=== PATIENT | female | born 1970 | race Caucasian/White ===

== ENCOUNTER → 2020-04-06 | Outpatient (CLI) | payer BC, OTHER ==
[~2020-04-06] MED LIST: CLEOCIN HCL300 MG PO; IBUPROFEN600 MG PO
[2020-04-06 08:14] LABS: HEMOGLOBIN 13.2 gm/dl (12.3-15.3)
== END ==
LOC: LAB 07:32
PROVIDERS: Internal Medicine Hematology & Oncology
DX: C50.812 Malignant neoplasm of overlapping sites of left female breast (principal); M25.50 Pain in unspecified joint; N95.1 Menopausal and female climacteric states; Z79.811 Long term (current) use of aromatase inhibitors
CPT/HCPCS: 36415; 85025; 93005

== ENCOUNTER 2020-09-30 18:33 | Emergency (ER) | payer BC, OTHER ==
[~2020-09-30] VITALS: Ht 167.6 cm; Wt 74.8 kg
[2020-09-30 20:24] LABS: HEMOGLOBIN 11.3 gm/dl (12.3-15.3); RED BLOOD COUNT 3.07 M/UL (4.00-5.10); WHITE BLOOD COUNT 5.9 K/UL (4.5-11.0)
[2020-09-30] MEDS ORDERED: CLEOCIN HCL300 MG PO (22:58)
[2020-09-30] MEDS ORDERED: IBUPROFEN600 MG PO (22:58)
== END 2020-09-30 23:06 | disposition home or self-care (01) ==
LOC: ER1 18:33
PROVIDERS: Internal Medicine
DX: N76.2 Acute vulvitis (principal); Z85.3 Personal history of malignant neoplasm of breast; Z85.830 Personal history of malignant neoplasm of bone; Z20.822 Contact with and (suspected) exposure to COVID-19
CPT/HCPCS: 0240U; 80053; 85025; 96374; 99284

== ENCOUNTER → 2020-11-11 | Outpatient (CLI) | payer BC | LOC: MRI 11-08 15:30 | DX: C50.812 Malignant neoplasm of overlapping sites of left female breast (principal); C79.51 Secondary malignant neoplasm of bone; M25.50 Pain in unspecified joint; N95.1 Menopausal and female climacteric states; M48.061 Spinal stenosis, lumbar region without neurogenic claudication; Z79.811 Long term (current) use of aromatase inhibitors | CPT/HCPCS: 72158; 73723; A9577 ==

== ENCOUNTER → 2021-03-14 | Outpatient (CLI) | payer BC | LOC: KOH-I 09:45 → MRI 09:49 | DX: C50.812 Malignant neoplasm of overlapping sites of left female breast (principal); M25.50 Pain in unspecified joint; N95.1 Menopausal and female climacteric states; Z79.811 Long term (current) use of aromatase inhibitors | CPT/HCPCS: 70553; 96523; A9577; J1642 ==

== ENCOUNTER → 2021-04-20 | Outpatient (CLI) | payer BC | LOC: NM 08:00 → CT 04-27 14:30 → NM 04-28 08:30 | DX: C50.812 Malignant neoplasm of overlapping sites of left female breast (principal); N95.1 Menopausal and female climacteric states; M25.50 Pain in unspecified joint; Z79.811 Long term (current) use of aromatase inhibitors; Z45.2 Encounter for adjustment and management of vascular access device | CPT/HCPCS: 78306; A9503; J1642 ==

== ENCOUNTER → 2021-04-26 | Outpatient (CLI) | payer BC ==
[~2021-04-26] VITALS: Ht 167.6 cm; Wt 78.9 kg
== END ==
LOC: CT 08:47
DX: C50.812 Malignant neoplasm of overlapping sites of left female breast (principal); Z79.811 Long term (current) use of aromatase inhibitors; M25.50 Pain in unspecified joint; N95.1 Menopausal and female climacteric states; Z45.2 Encounter for adjustment and management of vascular access device; R18.8 Other ascites; C79.51 Secondary malignant neoplasm of bone
CPT/HCPCS: 71260; J1642; Q9967

== ENCOUNTER 2021-05-06 17:06 | Inpatient (IN) | payer BC ==
[~2021-05-06] VITALS: Ht 167.6 cm; Wt 69.9 kg
[2021-05-06 17:43] LABS: HEMOGLOBIN 11.3 gm/dl (12.3-15.3); RED BLOOD COUNT 3.3 M/UL (4.00-5.10); WHITE BLOOD COUNT 8.3 K/UL (4.5-11.0)
[2021-05-06 18:59] LABS: BUN/CREATININE RATIO 16 (0-10)
[2021-05-07 05:55] LABS: HEMOGLOBIN 9.6 gm/dl (12.3-15.3)
[2021-05-07 05:56] LABS: RED BLOOD COUNT 2.84 M/UL (4.00-5.10); WHITE BLOOD COUNT 5.7 K/UL (4.5-11.0)
[2021-05-07] MEDS ORDERED: LISINOPRIL40 MG PO (11:38)
[2021-05-07] MEDS ORDERED: ASPIRIN EC81 MG PO (11:39)
[2021-05-07] MEDS ORDERED: LORATADINE10 MG PO (11:39)
[2021-05-07] MEDS ORDERED: KLONOPIN0.5 MG PO (11:39)
[2021-05-07] MEDS ORDERED: ZOFRAN 4 MG TAB4 MG PO (11:40)
[2021-05-08 05:32] LABS: RED BLOOD COUNT 2.33 M/UL (4.00-5.10); WHITE BLOOD COUNT 4.1 K/UL (4.5-11.0)
--- NOTE | 2021-05-08 11:25 | NUR ---
NG TUBE REMOVED BY DR. EISENBERG. NO S/SX OF DISTRESS NOTED AT PRESENT.
--- NOTE | 2021-05-08 12:31 | NUR ---
RN DEACCESSED PORT PER DISCHARGE ORDER. NO BLEEDING NOTED TO SITE. NO S/SX OF PAIN OR DISTRESS. BED LOCKED AND LOW. CALL LIGHT WITHIN REACH.
== END 2021-05-08 12:37 | disposition home or self-care (01) | DRG 375 ==
LOC: ER1 17:06 → CDU 20:30 → MED SURG 4 20:30
PROVIDERS: Internal Medicine; Student in an Organized Health Care Education/Training Program; ADMIT Internal Medicine
DX: C78.6 Secondary malignant neoplasm of retroperitoneum and peritoneum (principal); K56.609 Unspecified intestinal obstruction, unspecified as to partial versus complete obstruction; C79.51 Secondary malignant neoplasm of bone; R18.8 Other ascites; Z20.822 Contact with and (suspected) exposure to COVID-19; E83.51 Hypocalcemia; E86.0 Dehydration; D53.9 Nutritional anemia, unspecified; I10 Essential (primary) hypertension; Z85.3 Personal history of malignant neoplasm of breast; Z90.13 Acquired absence of bilateral breasts and nipples; Z90.710 Acquired absence of both cervix and uterus; Z88.2 Allergy status to sulfonamides; Z88.8 Allergy status to other drugs, medicaments and biological substances; Z80.3 Family history of malignant neoplasm of breast; Z79.899 Other long term (current) drug therapy
CPT/HCPCS: 71045; 74018; 80048; 80053; 82550; 82553; 83605; 84484; 85025; 85027; 85379; 87040; 96372; 96374; 96375; 96376; 99285; J1170; J1642; J1650; J2405; J2550; Q9967; U0002

== ENCOUNTER → 2021-10-04 | Outpatient (CLI) | payer BC ==
[~2021-10-04] MED LIST changes: +ASPIRIN EC81 MG PO; +KLONOPIN0.5 MG PO; +LISINOPRIL40 MG PO; +LORATADINE10 MG PO; +ZOFRAN 4 MG TAB4 MG PO
== END ==
LOC: EROP 16:12
DX: U07.1 COVID-19 (principal)
CPT/HCPCS: U0002

== ENCOUNTER → 2021-11-30 | Outpatient (CLI) | payer BC | LOC: CT 08:18 | DX: C50.812 Malignant neoplasm of overlapping sites of left female breast (principal); M25.50 Pain in unspecified joint; N95.1 Menopausal and female climacteric states; C79.51 Secondary malignant neoplasm of bone | CPT/HCPCS: 71260; Q9967 ==